=== PATIENT | male | born 1995 | race Caucasian/White ===

== ENCOUNTER 2025-01-26 21:39 | Emergency (ER) | payer SELFPAY ==
[2025-01-26 21:39] VITALS: BP 124/83; PULSE 85; RESP 18; TEMP 36.8; O2SAT 99; BMI 36.3
--- NOTE | 2025-01-26 23:17 | EX.ED.UPPERE ---
HPI History of Present Illness Chief Complaint: Upper Extremity Injury Informant: patient and spouse/S.O. Narrative Narrative: Patient is a 29-year-old male who reports no significant past medical history. He states he is [id number]. 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 He states that he was performing a simple motion when he felt pain in his right forearm. He states it is occurs right below the elbow and radiates towards his thumb/wrist. He states it is worse with motion. He denies any direct trauma to the area but states it is slightly swollen and painful. Secondary to this he presents for evaluation [facility] Home Medications ?Medication ?Instructions ?Recorded ?Last Taken ?Type ibuprofen 600 mg tablet 600 mg PO 4X/DAY PRN pain #40 tabs 01/26/25 Unknown Rx Allergy/AdvReac Type Severity Reaction Status Date / Time Penicillins Allergy Anaphylaxis Verified 01/26/25 21:40 Social History Smoking Status: Current every day smoker tobacco type: cigarettes and e-cigarettes ROS ROS ED Constitutional Constitutional ED: Denies chills or fever(s) ENT ENT ED: Denies sore throat Cardiovascular Cardiovascular: Denies chest pain Respiratory/Chest Respiratory/Chest: Denies cough or dyspnea Gastrointestinal Gastrointestinal: Denies abdominal pain, diarrhea, nausea or vomiting Musculoskeletal Musculoskeletal: Reports other Details: Positive right forearm pain Integumentary Denies Abrasions or rash Neurologic Neurologic: Denies headache(s) or paresthesias Hematologic/Lymphatic Hematologic/Lymphatic: Denies easy bleeding or easy bruising EXAM Physical Exam Const Vital Signs: 01/26/25 21:39 Temperature 98.3 F Temperature Source Oral Pulse Rate 85 Respiratory Rate 18 Blood Pressure 124/83 H Blood Pressure Mean 96 Pulse Ox 99 Oxygen Delivery Method Room Air Positive well nourished and well developed General Appearance ED: well developed HEENT HEENT Narrative: Normocephalic atraumatic Eyes PERRL and EOMs intact bilaterally Neck full ROM and supple Resp normal respiratory effort and clear to auscultation bilaterally Cardio regular rate and regular rhythm Extremity Extremity Narrative: Right upper extremity is neurovascularly intact; AIN/PIN are intact and normal There is no obvious bony deformity or joint effusion There is asymmetric swelling with faint ecchymosis along the dorsal aspect of the proximal right forearm. There is tenderness to palpation at this site. All compartments are soft and compressible going against compartment syndrome Neuro oriented x3, CN's II-XII intact bilaterally, moves all extremities, no focal motor deficits and no sensory deficits noted Sensorium / Orientation: alert Motor Exam: strength 5/5 throughout Psych mental status grossly normal Skin no rashes or lesions noted Skin Narrative: Soft tissue swelling with faint ecchymosis to the dorsal aspect of the proximal right forearm as documented above without secondary findings to suggest cellulitis or abscess MDM MDM MDM Narrative Medical decision making narrative: Patient arrived to the ER with stable vitals. He reported sudden onset of pain around the proximal right forearm after physical activity. There is no bony deformity or joint effusion to indicate potential fracture or dislocation. He has no signs of compartment syndrome. There are no overlying soft tissue changes to suggest infection such as cellulitis or abscess. By physical exam there is asymmetric swelling and ecchymosis and point tenderness. Based on the sudden onset of symptoms and these findings I feel there is a small partial muscle tear as the cause of his symptoms. As there is no sign of neurovascular compromise or compartment syndrome there is no need for further intervention and he is otherwise safe for discharge with outpatient follow-up History & Record Review Discussion w/independent historian: Patient Discharge Plan Triage Chief Complaint: Upper Extremity Injury ED Provider: Gary Ramirez Dx/Rx/DC Orders Clinical Impression: Muscle tear Instructions: ED Muscle Strain, Extremity Prescriptions: New ibuprofen 600 mg tablet 600 mg PO 4X/DAY PRN (Reason: pain) Qty: 40 0RF Stand Alone Forms: ED Work / School Excuse Primary Care Provider: Care Physician,No Primary Referrals: Donta Hendrix MD [Med Staff - Active Staff, Family Practice] Care Physician,No Primary [Primary Care Provider, Medical] Activity Restrictions/Additional Instructions: Your history and exam would indicate you have a small muscle tear to the muscle in your right forearm. Take the prescribed ibuprofen to help with pain. You may ice the area to reduce pain and speed healing as well. Symptoms should improve over the next 2 to 3 weeks. If you have any further concerns or worsening symptoms please return to the ER for repeat evaluation Print Language: [place] Disposition Disposition: Home, Self Care Discharge Date/Time: 01/26/25 23:38
[2025-01-26 23:36] VITALS: BP 133/85; PULSE 62; RESP 18; TEMP 36.6; O2SAT 99
== END 2025-01-26 23:38 | disposition home or self-care (01) ==
PROVIDERS: Emergency Provider Emergency Medicine; Visit Provider Emergency Medicine
DX: S56.911A Strain of unspecified muscles, fascia and tendons at forearm level, right arm, initial encounter (principal); F17.210 Nicotine dependence, cigarettes, uncomplicated; F17.290 Nicotine dependence, other tobacco product, uncomplicated; X50.0XXA Overexertion from strenuous movement or load, initial encounter
CPT/HCPCS: 99282